=== PATIENT | male | born 1950 | race Hispanic/Latino ===

== ENCOUNTER 2016-12-25 13:26 | Emergency (ER) | payer MEDICARE ==
[2016-12-26] MEDS ORDERED: VALIUM ONE (02:45)
[2016-12-26] MEDS ORDERED: VALIUM IM ONE (02:55)
--- NOTE | 2016-12-26 05:59 | Emergency Department Report ---
HPI - General Chief Complaint: Back Pain/Injury Time Seen by Provider: 12/26/16 01:59 - HPI HPI: The patient's is a 66-year-old male who presents for evaluation of back pain. The patient has history of chronic back pain. The patient reports that his pain recurred 2 weeks ago, has been constant since, 06/10 in severity, throbbing quality, exacerbated with movement of the lower back. The patient denies blunt trauma to the back, fall, fever, chills, night sweats, saddle anesthesia, paresthesias, numbness or tingling in the legs, leg weakness, urine or bowel incontinence or retention, difficulty ambulating, or other focal neurological deficits. The patient also denies redness or swelling to the back, IV drug use, history of cancer. ED Past Medical Hx - Past Medical History Previous Medical History?: Yes Hx Congestive Heart Failure: No Hx Diabetes: No Hx Psychiatric Treatment: Yes (anxiety) Hx Asthma: No Hx COPD: No Hx HIV: No Additional medical history: Chronic Ankle pain and ulcers. umbilical hernia - Surgical History Additional Surgical History: Right leg surgery, Right hand surgery, Right elbow - Social History Smoking Status: Never Smoker Substance Use Type: None - Medications Home Medications: Home Medications Medication Instructions Recorded Confirmed Last Taken Type Methadone [Dolophine] 30 mg PO TID 01/27/14 04/05/15 02/25/14 History oxyCODONE /ACETAMINOPHEN [Percocet 1 tab PO Q6H PRN #20 tablet 03/03/14 Unknown Rx 5/325 mg] Diazepam 5 mg PO QID 04/05/15 04/05/15 Unknown History Famotidine [Pepcid] 20 mg PO BID #60 tablet 04/11/15 Unknown Rx Heparin/ 0.45% NaCl Drip [Heparin/ 500 ml IV TITR bag 04/11/15 Unknown Rx 0.45% NaCl-25,000 Unit/500 ml] Ipratropium/Albuterol Sulfate 1 ampul IH TIDRT ampul.neb 04/11/15 Unknown Rx [Duoneb 0.5 mg-3 mg/3 ml Soln] Rivaroxaban [Xarelto Starter Pack] 1 each PO DAILY #1 tab.ds.pk 04/11/15 Unknown Rx Vancomycin 1,250 mg IV Q12HR vial 04/11/15 Unknown Rx fentaNYL [Duragesic] 25 mcg TD Q3D #20 patch 04/11/15 Unknown Rx ALBUTEROL Inhaler [ProAir HFA 2 puff IH QID PRN #1 inhalation 05/31/15 Unknown Rx Inhaler] Furosemide [Lasix] 20 mg PO QDAY #5 tablet 05/31/15 Unknown Rx traMADol [Ultram 50 MG tab] 50 mg PO Q6HR PRN #10 tablet 12/26/16 Unknown Rx ED Review of Systems ROS: Stated complaint: BACK PAIN Other details as noted in HPI Constitutional: denies: fever ENT: denies: throat or neck pain Respiratory: denies: cough, shortness of breath Cardiovascular: denies: chest pain Endocrine: denies unexplained weight loss or gain Gastrointestinal: denies: abdominal pain, nausea Genitourinary: denies: dysuria Musculoskeletal: reports back pain denies: leg swelling Skin: denies: rash Neurological: denies: headache Hematological/Lymphatic: denies: easy bleeding or easy bruising Psych: denies sadness or hopelessness Physical Exam - Physical Exam Vital Signs: Vital Signs 12/25/16 14:50 Temperature 97.7 F Pulse Rate 59 L Respiratory 18 Rate Blood Pressure 142/99 O2 Sat by Pulse 98 Oximetry Physical Exam: General: well-nourished, well-developed, no acute distress Head: Normocephalic, atraumatic Eyes: normal sclera ENT: Mucous membranes are pink and moist Neck: trachea midline, neck supple Respiratory: Breath sounds equal bilaterally, no wheezing, rales, or rhonchi Cardio: S1 and S2 present, no murmurs, rubs, gallops, capillary refill is brisk Abdomen: Normoactive bowel sounds, soft abdomen, no tenderness Chest WALL/Back: No tenderness to palpation of the chest wall, no CVA tenderness with percussion Musc: Tenderness to palpation present to bilateral lower lumbar paraspinal musculature, no midline tenderness, pain is elicited with flexion at the hip, normal active range of motion at the hip intact, no spinous step-off or obvious deformity, ipsi-lateral and contralateral straight leg raise tests are negative. On extremity testing, compartments are soft and pliable, no obvious gross motor strength deficit, 5+ motor strength, including extension of the great toe bilaterally, no muscular atrophy, spasticity, fasciculations, or clonus, no obvious gross sensation deficit including web space between 1st and 2nd toes, reflexes 2+ & symmetric on DTR testing at the knee and ankle joints, distal pulses intact. Skin: No rash Neuro: no facial drooping, normal speech Psych: Normal affect ED Course Vital Signs 12/25/16 14:50 Temperature 97.7 F Pulse Rate 59 L Respiratory 18 Rate Blood Pressure 142/99 O2 Sat by Pulse 98 Oximetry ED Medical Decision Making - Medical Decision Making The patient was seen and examined by myself. The patient is placed on a monitoring analyst and continuous pulse ox. On initial evaluation, the patient was found to be in no distress. No findings on exam concerning for cauda equina syndrome, spinal stenosis, or epidural abscess . As the patient has no midline tenderness on exam, no neuro deficits, and no findings concerning for emergent etiology of their back pain, CT imaging will not be obtained at this time. The patient is given an IM dose of Valium for his pain. X-ray of the thoracic spine was negative for acute fracture dislocation. The patient was reevaluated and reported that his pain was improved. The patient is stable for discharge with outpatient follow-up. The patient is given follow-up and return instructions. The patient expressed understanding and agreed with the plan. The patient is discharged in stable condition. Critical care attestation.: If time is entered above; I have spent that time in minutes in the direct care of this critically ill patient, excluding procedure time. ED Disposition Clinical Impression: Acute bilateral low back pain without sciatica Disposition: DISCHARGED TO HOME OR SELFCARE Is pt being admited?: No Does the pt Need Aspirin: No Condition: Stable Instructions: Low Back Strain (ED), Acute Low Back Pain (ED) Prescriptions: traMADol [Ultram 50 MG tab] 50 mg PO Q6HR PRN #10 tablet PRN Reason: Pain Referrals: PRIMARY CARE, [Primary Care Provider] - 3-5 Days Time of Disposition: 05:55
[2016-12-26 07:02] VITALS: BP 132/87
--- NOTE | 2016-12-26 07:47 | XRay Report ---
THORACIC SPINE, 3 VIEWS: History: Mid back pain. Findings: Limited exam. Osteopenia is evident. Mild scoliosis is evident on the AP view. There is mild to moderate multilevel degenerative disc disease. There appears to be mild loss of height at the approximate level of T11 or T12 on the lateral view. It is unclear if this represents an acute or chronic compression deformity. I suspect this is chronic. Impression: Osteopenia. Scoliosis with degenerative changes. Possible compression deformity at T11 or T12 as outlined above. The age of this is indeterminate. Consider further evaluation with CT or MRI if needed.
== END 2016-12-26 07:03 | disposition home or self-care (01) ==
LOC: ED 13:26
DX: M54.5 Low back pain (principal); F41.9 Anxiety disorder, unspecified; G89.29 Other chronic pain
CPT/HCPCS: 72072; 96372; 99283; J3360

== ENCOUNTER 2018-05-22 21:51 | Emergency (ER) | payer MEDICARE ==
[2018-05-23 00:30] LABS: Basophils # (Auto) 0.1 K/mm3 (0.0-0.1); Basophils % (Auto) 0.6 % (0.0-1.8); Eosinophils # (Auto) 0.1 K/mm3 (0.0-0.4); Lymphocytes # (Auto) 2.3 K/mm3 (1.2-5.4); Lymphocytes % (Auto) 21.9 % (13.4-35.0); Mean Corpuscular HGB Conc 36 % (32-34); Mean Corpuscular Hemoglobin 33 pg (28-32); Mean Corpuscular Volume 91 fl (84-94); Monocytes # (Auto) 0.6 K/mm3 (0.0-0.8); Monocytes % (Auto) 5.3 % (0.0-7.3); Platelet Count 310 K/mm3 (140-440); Red Blood Count 4.18 M/mm3 (3.65-5.03); Red Cell Distribution Width 14.6 % (13.2-15.2)
[2018-05-23 00:35] LABS: Hemoglobin 13.7 gm/dl (11.8-15.2)
[2018-05-23 00:51] LABS: BUN/Creatinine Ratio 24; Blood Urea Nitrogen 26 mg/dL (9-20); Calcium 9.3 mg/dL (8.4-10.2); Hemolysis Index 4
[2018-05-23 05:29] VITALS: BP 104/77
[2018-05-23] MEDS ORDERED: TORADOL IM ONE (08:38)
--- NOTE | 2018-05-23 08:41 | Emergency Department Report ---
ED Back Pain/Injury HPI - General Chief Complaint: Abdominal Pain Stated Complaint: low back pain sp glf 3 d ago; ac/ pain here often; has been on and off methadone etc. Time Seen by Provider: 05/23/18 08:23 Source: patient Limitations: No Limitations - Related Data Previous Rx's Medication Instructions Recorded Last Taken Type Famotidine [Pepcid] 20 mg PO BID #60 tablet 04/11/15 Unknown Rx Heparin/ 0.45% NaCl Drip [Heparin/ 500 ml IV TITR bag 04/11/15 Unknown Rx 0.45% NaCl-25,000 Unit/500 ml] Ipratropium/Albuterol Sulfate 1 ampul IH TIDRT ampul.neb 04/11/15 Unknown Rx [DUONEB *Not for PRN Use*] Rivaroxaban [Xarelto Starter Pack] 1 each PO DAILY #1 tab.ds.pk 04/11/15 Unknown Rx ALBUTEROL Inhaler (OR & NICU) 2 puff IH QID PRN #1 inhalation 05/31/15 Unknown Rx [ProAir HFA Inhaler] Furosemide [Lasix] 20 mg PO QDAY #5 tablet 05/31/15 Unknown Rx traMADol [Ultram] 50 mg PO Q6HR PRN #10 tablet 05/23/18 Unknown Rx Allergies Allergy/AdvReac Type Severity Reaction Status Date / Time meperidine HCl [From Demerol] Allergy Itching Verified 01/09/15 23:21 ED Review of Systems ROS: Stated complaint: GENERAL BODY PAIN/FALL 3DAYS AGO Other details as noted in HPI Comment: All other systems reviewed and negative Constitutional: denies: chills, fever Respiratory: no symptoms reported Cardiovascular: denies: chest pain, palpitations Endocrine: no symptoms reported. denies: excessive sweating, flushing Gastrointestinal: denies: abdominal pain, nausea, diarrhea, constipation, hematemesis, hematochezia Genitourinary: denies: urgency, dysuria Musculoskeletal: back pain, joint swelling, arthralgia Skin: denies: rash, lesions Neurological: denies: headache, weakness, numbness, paresthesias, confusion, abnormal gait, vertigo, other Psychiatric: denies: anxiety, depression Hematological/Lymphatic: denies: easy bleeding ED Past Medical Hx - Past Medical History Medical history: DVT Chronic Ankle pain and ulcers. umbilical hernia Family history: no significant family history - Social History Alcohol use: occasionally ED Back Pain Physical Exam - Exam General: Vital signs noted. No distress. Alert and acting appropriately. ED Course Vital Signs 05/22/18 05/23/18 23:59 05:26 Temperature 97.9 F 97.6 F Pulse Rate 66 67 Respiratory 18 20 Rate Blood Pressure 115/76 104/77 O2 Sat by Pulse 98 97 Oximetry Ed Back Pain Tests - Tests Tests: Abnormal X Rays ED Medical Decision Making - Lab Data Result diagrams: 05/23/18 00:13 05/23/18 00:13 - Radiology Data Radiology results: report reviewed, image reviewed - Differential Diagnosis acute v chronic pain Critical care attestation.: If time is entered above; I have spent that time in minutes in the direct care of this critically ill patient, excluding procedure time. ED Disposition Clinical Impression: Chronic pain Disposition: DC-01 TO HOME OR SELFCARE Is pt being admited?: No Does the pt Need Aspirin: No Condition: Stable Instructions: Low Back Strain (ED), Acute Low Back Pain (ED), Chronic Back Pain (ED), Back Pain (ED) Additional Instructions: good body mechanics see pcp for methadone or other pain meds er can not issue these Prescriptions: traMADol [Ultram] 50 mg PO Q6HR PRN #10 tablet PRN Reason: Pain Referrals: JANELLE RAGSDALE MD [Primary Care Provider] - 3-5 Days Time of Disposition: 10:25
--- NOTE | 2018-05-23 10:12 | XRay Report ---
FINAL REPORT EXAM: XR SPINE SACRUM/COCCYX 2+V HISTORY: FALL TECHNIQUE: Three view sacrum and coccyx. PRIORS: None currently available. FINDINGS: There is no acute fracture. There is no evidence for healing fracture. There is no acute dislocation. SI joints are unremarkable. There is no cortical destruction to suggest osteomyelitis. There are no suspicious osseous lesions. Postsurgical changes within the spine. IMPRESSION: No acute osseous findings.
--- NOTE | 2018-05-23 10:16 | XRay Report ---
FINAL REPORT EXAM: XR SPINE LUMBOSACRAL 4+V HISTORY: FALL TECHNIQUE: Three views lumbar spine. PRIORS: None currently available. FINDINGS: Diffuse osteopenia. Straightening of the normal lordotic alignment. 25-50 percent compression fracture deformity at L3. 50-75 percent compression fracture deformity at L2. Greater than 75 percent compression fracture deformity T12. Severe degenerative discs throughout the lower thoracic and lumbar spine. Grade 1 posterior subluxations T12-L4. Levoscoliosis of the lumbar spine. Patient status post bilateral laminectomy at L4 and L5. Osteogenic facet seeds at L3-L5 identified. Bilateral laminectomies at L4 and L5. Osteogenic facet seeds at L3-L5. IMPRESSION: Diffuse osteopenia. Straightening of the normal lordotic alignment. Levoscoliosis. Multilevel degenerative discs. Compression fracture deformities at T12, L2, and L3. Acuity is indeterminate. Postsurgical changes.
[2018-05-23] MEDS ORDERED: FLEXERIL PO ONE (10:23)
[2018-05-23] MEDS ORDERED: DELTASONE PO ONE (10:24)
== END 2018-05-23 11:05 | disposition home or self-care (01) ==
LOC: ED 21:51
DX: M54.5 Low back pain (principal); G89.29 Other chronic pain; Z86.718 Personal history of other venous thrombosis and embolism; Z88.1 Allergy status to other antibiotic agents
CPT/HCPCS: 36415; 72100; 72220; 80048; 85025; 96372; 99284; J1885; J7512; 72110